=== PATIENT | female | born 1985 | race Caucasian/White ===

== ENCOUNTER 2025-04-01 11:55 | Emergency (ER) | payer SELFPAY ==
[2025-04-01 11:58] VITALS: BP 145/100
[2025-04-01 12:19] VITALS: BMI 24.8
[2025-04-01 12:23] LABS: Hematocrit 37.6 % (37.0-47.0); Hemoglobin 12.6 g/dL (12.0-16.0); Mean Corp Hgb Conc. 33.5 g/dL (33.0-37.0); Mean Corpuscular Volume 87.4 fL (81.0-99.0); Nucleated Red Blood Cells % 0 %; Platelet Count 291 10^3/uL (130-400); Red Cell Dist. Width 14.9 % (11.5-14.5)
[2025-04-01 12:33] LABS: ALT (SGPT) 23 U/L (0-35); AST (SGOT) 28 U/L (14-36); Albumin 4.7 g/dl (3.5-5.0); Alkaline Phosphatase 51 U/L (38-126); Blood Urea Nitrogen 12 mg/dl (7-17); Calcium 9.6 mg/dl (8.4-10.2); Carbon Dioxide 26 mmol/L (22-30); Chloride 109 mmol/L (98-107); Estimated Creatinine Clearance 96 ml/min; Glucose 94 mg/dl (70-99); Potassium 4.2 mmol/L (3.5-5.1); Sodium 140 mmol/L (135-145); Total Protein 7.2 g/dl (6.3-8.2); eGFR > 60.00
[2025-04-01 12:49] LABS: Beta HCG Quantitative 2.73 mIU/ml
--- NOTE | 2025-04-01 13:12 | ED.GENMED ---
History of Present Illness
General
Chief Complaint: Problems
Source: patient
Exam Limitations: none
Time Seen by Provider: 04/01/25 12:35
Nursing documentation reviewed up to this point in time: agreed with
History of Present Illness
History of Present Illness:
39-year-old female with no past medical history, 3, para 2 presents stating she took a home test which was +6 weeks ago, she states on 03/29 she started with abdominal cramping and bleeding with clot, she has been bleeding like a
normal period daily since then. She denies abdominal pain at this time. She denies feeling weak or dizzy.
Past History
Past History
ED Past Medical History: None
ED Past Surgical History: None
Social History
Tobacco: Non-smoker
Personal:
Living: with family
Employment: Employed
Review of Systems
Review of Systems
Allergies reviewed?: Yes
All Other Systems: ROS reviewed and negative except as documented in HPI and ROS
Phy Exam
Physical Exam
Physical Exam:
GENERAL: No acute distress. A&Ox3.
CONSTITUTIONAL: Afebrile.
EYES: clear, conjunctivae normal
ENMT: moist mucus membranes, Pharynx nl
RESPIRATORY: Regular respirations, nonlabored, lungs clear.
CARDIOVASCULAR: Regular rate and rhythm, no murmurs, no rubs.
GI: Soft, nontender, normal BS
MUSCULOSKELETAL: Moves with ease. Well perfused.
SKIN: Warm, dry, pink
PSYCH: Normal mood and affect. Well kept, interactive and appropriate
NEUROLOGIC: Awake, alert and oriented. No focal neurological deficits
Course
Orders/Labs/Results
Orders:
Orders
04/01/25 11:59
US 1st Trimester Urgent
Comment:
Reason For Exam: 6 weeks preg. Bleeding
04/01/25 12:05
Type+Screen Urgent
Complete Blood Count/With Diff Urgent
Comprehensive Metabolic Panel Urgent
HCG, Beta Quantitative [Beta HCG Quantitative] Urgent
Is this a screen?: No
Abnormal Lab Results
04/01/25
12:05
RDW 14.9 H %
(11.5-14.5)
Absolute Monos (auto) 0.7 H 10^3/uL
(0.1-0.6)
Chloride 109 H mmol/L
(98-107)
04/01/25 12:05
04/01/25 12:05
Vital Signs
Initial and Last Documented VS:
Initial Vital Signs
Temp Pulse Resp BP Pulse Ox
98.3 F 94 17 145/100 99
04/01/25 11:58 04/01/25 11:58 04/01/25 11:58 04/01/25 11:58 04/01/25 11:58
Last Documented Vital Signs
Temp Pulse Resp BP Pulse Ox
98.3 F 80 18 119/84 99
04/01/25 11:58 04/01/25 15:04 04/01/25 15:04 04/01/25 15:04 04/01/25 15:04
Information
Weeks gestation: N/A
Location: N/A
MDM/Problems Addressed
Differential Diagnosis Includes:
Threatened miscarriage/miscarriage
MDM/Problems Addressed:
39-year-old female with no past medical history, 3, para 2 presents stating she took a home test which was +6 weeks ago, she states on 03/29 she started with abdominal cramping and bleeding with clot, she has been bleeding like a
normal period daily since then. She denies abdominal pain at this time. She denies feeling weak or dizzy.
Afebrile, stable, NAD
CBC normal
CMP normal
Beta-hCG 2.73
2:45 PM:
Ultrasound radiology report read: IMPRESSION:
No sonographic evidence for an intrauterine gestation. No evidence for an ectopic gestation. Findings reflect a of unknown location. Recommend continued correlation with beta hCG levels and follow-up ultrasound as clinically indicated.
Consulted [employer] Dr. Camacho who agrees if her hcg is 2 then that's negative so seems like unfortunately she had a completed miscarriage. No indication for follow-up hCG or ultrasound
Patient informed, Not surprised, calm
Stable for discharge.
*Pulse Oximetry
SaO2: 99
Oxygen Mode of Delivery: Room air
Patient hypoxic: not evaluated
*Critical Care Note
Total Time (30-74mins, 75-104mins- exclusive of procedures): Not Applicable
ED Attending Note
-
Portions of this chart may have been created with voice recognition software.� Occasional wrong word or��sound alike� substitutions may have occurred due to the inherent limitations of voice recognition software.
Discharge Plan
Departure
Patient Disposition: Home (Routine Discharge)
Date of Disposition: 04/01/25
Time of Disposition: 14:59
Patient with high blood pressure during this ER visit?: No
Condition: Good
Discharge Problem:
Complete miscarriage
Instructions: Miscarriage (DC)
Referrals:
Malathi Camacho MD [Active, Gynecology] - As needed
UNKNOWN - PT DOES,NOT KNOW [Family Provider]
Interventions
Interventions:
*Risk Screen - Suicide Last Done: 04/01/25 11:59
*General Assessment Last Done: 04/01/25 11:59
*Neglect/Abuse Screening Last Done: 04/01/25 11:59
*ED- Fall Risk Assessment Last Done: 04/01/25 12:19
*ED COVID-19 Vaccine History Last Done: 04/01/25 11:59
*Nursing Disposition Last Done: 04/01/25 15:13
ED-Female Genitourinary Assessment Last Done: 04/01/25 12:19
Discharge Date and Time
Discharge Date/Time: 04/01/25 15:14
Print Language: POLISH
[2025-04-01 15:04] VITALS: BP 119/84
== END 2025-04-01 15:14 | disposition home or self-care (01) ==
LOC: EMR 11:55
PROVIDERS: EMERGENCY PHYSICIAN Emergency Medicine
DX: O03.9 Complete or unspecified spontaneous abortion without complication (principal)
CPT/HCPCS: 99284; 76801; 80053; 84702; 85025; 86850; 86900; 86901